=== PATIENT | male | born 1950 | race Caucasian/White ===

== ENCOUNTER 2017-12-19 13:31 | Emergency (ER) | payer MEDICARE, MEDICAID ==
[~2017-12-19] VITALS: Ht 175.3 cm; Wt 79.0 kg
[2017-12-19 14:47] VITALS: BP 145/86
== END 2017-12-19 18:20 | disposition home or self-care (01) ==
LOC: ER 13:40
DX: M54.5 Low back pain (principal); I10 Essential (primary) hypertension; E11.9 Type 2 diabetes mellitus without complications
CPT/HCPCS: 72100; 99284